=== PATIENT | female | born 1965 | race Caucasian/White ===

== ENCOUNTER 2018-02-23 16:20 | Emergency (ER) | payer BC ==
[2018-02-23 17:27] LABS: COLOR,URINE AMBER (YELLOW)
[2018-02-23 17:28] LABS: APPEARANCE,URINE CLEAR (CLEAR); OCCULT BLOOD,URINE 1+ (NEGATIVE)
[2018-02-23 17:31] LABS: BASOPHILS % 0.3 (0.0-1.5); EOSINOPHILS % 1.7 % (0.0-6.8); MEAN CORPUSCULAR HEMOGLOBIN 30.3 pg (28.0-34.0); NEUTROPHILS # 5.7 # k/uL (1.4-7.7)
--- NOTE | 2018-02-23 17:31 | ED Physician Documentation ---
Abdominal Pain - HISTORIAN Historian: patient - HPI Stated Complaint: Abdominal discomfort, N/V for a week Chief Complaint: Abdominal Pain Additonal Information: Patient presents with a 1 week history of periumblical abdominal pain with associated nausea and vomiting. Patient states she saw Dr. Chao several days ago and he recommended evaluation with labs and xrays, however, patient declined due to financial reasons. Today the pain worsened and she took 2- Hydrocodone 10/325mg before she came to the ED. She states she takes hydrocodone for her back pain. Her regimen consists of 2 Hydrocodone 10/325mg every 12 hours and Ibuprofen 600mg every 12 hours. She staggers these, however, she was told not to take her Ibuprofen anymore so she has been taking more hydrocodone. Onset: days ago (7) Duration: waxing, waning Timing: still present Context: denies: out of country travel, bad food Severity: moderate Quality: pain, aching, dull, sharp, stabbing Associated Symptoms: fever (99.6), nausea, vomiting (daily atleast 4 times per day usually after eating). denies: coffee ground emesis, bloody emesis, grossly bloody stools, chest pain Exacerbated by: food Relieved by: remaining still - ROS CONST: no problems GI/: denies: constipation CVS/RESP: denies: shortness of breath MS/SKIN/LYMPH: none - SOCIAL HX Smoking History: cigarettes, greater than 1 pack/day Alcohol Use: none Drug Use: none - FAMILY HX Family History: none - PAST HX Past History: other (idopathic hematuria) Ischemic Bowel Risk Factors: none Other History: other (chronic back pain with narcotic use) Surgeries/Procedures: none Home Medications: Ambulatory Orders Medication Instructions Recorded Clonazepam 1 mg PO PRN PRN u2 12/23/17 Levothyroxine Sodium 175 mcg PO DAILY u2 12/23/17 Topiramate 50 mg PO HS u2 12/23/17 Zolmitriptan [Zomig] 5 mg NS PRN PRN 12/23/17 Duloxetine HCl [Cymbalta] 120 mg PO D 02/23/18 Methylphenidate HCl [Ritalin] 20 mg PO D 02/23/18 Ondansetron [Zofran Odt] 4 mg PO TID #40 tab.rapdis 11/27/18 Allergies/Adverse Reactions: Allergies Allergy/AdvReac Type Severity Reaction Status Date / Time lisinopril Allergy Severe Mouth Verified 02/23/18 16:48 Swelling - VITAL SIGNS Vital Signs: Vital Signs Temp Pulse Resp BP Pulse Ox 98.4 F 68 14 149/79 96 02/23/18 16:20 02/23/18 16:20 02/23/18 16:20 02/23/18 16:20 02/23/18 16:20 - REVIEWED ASSESSMENTS Nursing Assessment Reviewed: Yes Vitals Reviewed: Yes ED Results Lab/Radiology - Lab Results Lab Results: Lab Results 02/23/18 02/23/18 02/23/18 17:25 17:25 17:05 WBC 8.40 K/ul K/ul (4.00-12.00) RBC 4.23 M/ul M/ul (3.90-5.20) Hgb 12.8 g/dL g/dL (12.0-16.0) Hct 38.1 % % (34.5-46.5) MCV 90.0 fl fl (80.0-100.0) MCH 30.3 pg pg (28.0-34.0) MCHC 33.6 g/dL g/dL (30.0-36.0) RDW 14.5 % H % (11.3-14.3) Plt Count 243 K/mm3 K/mm3 (130-400) Neut % (Auto) 67.4 % % (39.0-79.0) Lymph % (Auto) 25.6 % % (16.0-50.0) Aiken % (Auto) 5.0 % % (0.0-11.0) Eos % (Auto) 1.7 % % (0.0-6.8) Baso % (Auto) 0.3 (0.0-1.5) Neut # (Auto) 5.7 # k/uL # k/uL (1.4-7.7) Lymph # (Auto) 2.2 # k/uL # k/uL (0.6-4.0) Aiken # (Auto) 0.4 # k/uL # k/uL (0.0-0.9) Eos # (Auto) 0.1 # k/uL # k/uL (0.0-0.6) Baso # (Auto) 0.0 # k/uL # k/uL (0.0-0.5) Sodium 145 mmol/L mmol/L (136-145) Potassium 3.7 mmol/L mmol/L (3.5-5.1) Chloride 104 mmol/L mmol/L (98-107) Carbon Dioxide 32 mmol/L H mmol/L (22-30) BUN 10 mg/dL mg/dL (7-17) Creatinine 0.60 mg/dL mg/dL (0.52-1.04) Estimated Creat Clear 147 Est GFR ( Amer) > 60 (60 - ) Est GFR (Non-Af Amer) > 60 (60 - ) Glucose 101 mg/dL mg/dL (74-106) Calcium 9.2 mg/dL mg/dL (8.4-10.2) Total Bilirubin 0.9 mg/dL mg/dL (0.2-1.3) AST 491 U/L H U/L (15-46) ALT 445 U/L H U/L (13-69) Alkaline Phosphatase 245 U/L H U/L (38-126) Total Protein 6.7 g/dL g/dL (6.3-8.2) Albumin 3.5 g/dL g/dL (3.5-5.0) Urine Color Yvonne (YELLOW) Urine Appearance Clear (CLEAR) Urine pH 7.0 (5.0 - 8.0) Ur Specific [place] 1.015 (1.010-1.030) Urine Protein Negative mg/dL mg/dL (NEGATIVE) Urine Ketones Negative mg/dL mg/dL (NEGATIVE) Urine Occult Blood 1+ H (NEGATIVE) Urine Nitrite Negative (NEGATIVE) Urine Bilirubin 1+ H (NEGATIVE) Urine Urobilinogen 1.0 Eu Eu (0.2-1.0) Ur Leukocyte Esterase Negative (NEGATIVE) Urine Glucose Negative mg/dL mg/dL (NEGATIVE) - Radiology Radiology Impressions: CT abdomen and pelvis with contrast. History: periumbilical pain. Technique: Transaxial computed tomographic images of the abdomen pelvis were obtained with the use of intravenous contrast according to standard protocol. Findings: The lung bases clear. The heart size is normal. The liver , pancreas spleen adrenals and bilateral kidneys are normal. The gallbladder is partially contracted. Mild amount retained stool is present. There is no evidence of bowel obstruction. The appendix is normal. The enhanced vascular structures are normal. There is no adenopathy present. Tiny fat containing umbilical hernia is present. The bladder is normal. There is no free fluid. The uterus is absent. There is posterior fusion in the lower lumbar spine. Impression: 1. No bowel wall thickening or dilation. Normal appendix. 2. Tiny fat containing umbilical hernia. 3. Gallbladder is partially contracted. 4. Status post hysterectomy and posterior lumbar fusion. Electronically signed on Feb 23, 2018 6:58:59 PM [employer] by: Vahid Brown - Orders Orders: ED Orders Category Date Time Status Place IV Lock 1T Care 02/23/18 16:[address] ABD & PELVIS W/ CON Stat Exams 02/23/18 Completed CBC/PLATELET/DIFF Routine Lab 02/23/18 17:25 Completed CMP Routine Lab 02/23/18 17:25 Completed UA MACRO DIP ONLY Routine Lab 02/23/18 17:05 Completed Abdominal Pain Physical Exam - Physical Exam General Appearance: no acute distress, alert EENT: JULIETH NECK: normal inspection RESPIRATORY: no resp distress, chest non-tender, breath sounds normal CVS: reg rate & rhythm, heart sounds normal ABDOMEN: soft, normal bowel sounds, tenderness (periumbilical ) BACK: normal inspection, no CVA tenderness SKIN: warm/dry, normal color. No: jaundice EXTREMITIES: non-tender, normal range of motion, no edema NEURO: oriented X3, motor nml Vital Signs: Vital Signs Temp Pulse Resp BP Pulse Ox 98.4 F 68 14 149/79 96 02/23/18 16:20 02/23/18 16:20 02/23/18 16:20 02/23/18 16:20 02/23/18 16:20 Discharge Clincal Impression: Elevated LFTs Umbilical hernia without mention of obstruction or gangrene Qualifiers: Obstruction and gangrene presence: without obstruction or gangrene Qualified Code(s): K42.9 - Umbilical hernia without obstruction or gangrene Prescriptions: Ondansetron [Zofran Odt] 4 mg PO TID #40 tab.rapdis Referrals: Francisco Chao MD [Primary Care Provider] - 2 Days Additional Instructions: 1. Do NOT take more than 6 tablets of Hydrocodone daily. Do not take Tylenol or drink alcohol with pain medication 2. Follow up with PCP within 1 week. 3. Take Protonix daily x 2 months. Then re-evaluate Condition: Stable Disposition: 01 HOME, SELF-CARE Decision to Admit: NO Date of Decison to Admit: 02/23/18 Decision Time: 19:04
[2018-02-23 17:42] LABS: eGFR (Non-African) > 60
--- NOTE | 2018-02-23 19:03 | Diagnostic Imaging Report ---
IMTIAZ FELIZ [facility] [address] [facility] [address] [place], [place]. [address] Report Submission Date: Feb 23, 2018 6:58:59 PM SPINDLE SANDER Patient Study Name: CYRIL GONZALEZ Date: Feb 23, 2018 6:00:29 PM [employer]INDLE SANDER Modality Type: CT\SR Gender: F Description: CT ABD PELVIS W/ CON : 65 Institution: [facility] Physician: IMTIAZ FELIZ CT abdomen and pelvis with contrast. History: periumbilical pain. Technique: Transaxial computed tomographic images of the abdomen pelvis were obtained with the use of intravenous contrast according to standard protocol. Findings: The lung bases clear. The heart size is normal. The liver , pancreas spleen adrenals and bilateral kidneys are normal. The gallbladder is partially contracted. Mild amount retained stool is present. There is no evidence of bowel obstruction. The appendix is normal. The enhanced vascular structures are normal. There is no adenopathy present. Tiny fat containing umbilical hernia is present. The bladder is normal. There is no free fluid. The uterus is absent. There is posterior fusion in the lower lumbar spine. Impression: 1. No bowel wall thickening or dilation. Normal appendix. 2. Tiny fat containing umbilical hernia. 3. Gallbladder is partially contracted. 4. Status post hysterectomy and posterior lumbar fusion. Electronically signed on Feb 23, 2018 6:58:59 PM [employer]LE [employer]ER by: Vahid MUNOZ
[2018-02-23 20:13] VITALS: BP 138/72
== END 2018-02-23 19:40 | disposition home or self-care (01) ==
LOC: ED 16:20
DX: K42.9 Umbilical hernia without obstruction or gangrene (principal); R74.8 Abnormal levels of other serum enzymes
CPT/HCPCS: 36415; 74177; 80053; 81002; 85025; 99283; 99284; Q9967; S1016

== ENCOUNTER 2018-03-02 13:09 | Outpatient (CLI) | payer BC ==
--- NOTE | 2018-03-02 16:49 | Diagnostic Imaging Report ---
JESUS LEON [facility] [address] [facility] [address] [address] Report Submission Date: Mar 02, 2018 2:14:06 PM SKEIN WINDER Patient Study Name: CYRIL GONZALEZ Date: Mar 02, 2018 1:23:20 PM SKEIN WINDER Modality Type: US Gender: F Description: US RUQ : 65 Institution: [facility] Physician: JESUS LEON Examination: Ultrasound right upper quadrant. History: ruq pain for 3 weeks and nausea Comparison exam: CT dated [id number] Findings: Sonographic evaluation of the right upper quadrant demonstrates the gallbladder with numerous layering gallstones.. Gallbladder wall measures 1.5 mm. Common bile duct measures 8.0 mm. No intrahepatic biliary dilation. Liver demonstrates normal homogeneous echogenicity. No mass or cyst. Normal flow on color analysis. Normal portal vein Doppler waveform. Right kidney measures 12.1 cm in length. No cortical mass or cyst. No hydronephrosis. Pancreatic region without gross irregularity. Impression: Numerous layering gallstones. No gallbladder wall thickening. Dilated common bile duct at 8.0 mm. Electronically signed on Mar 02, 2018 2:14:06 PM SKEIN WINDER by: Demetrius MUNOZ
[2018-03-02 23:27] LABS: LIPASE 15 U/L (13-60); TOTAL PROTEIN 7.3 g/dL (6.0-8.5)
== END 2018-03-02 13:10 ==
LOC: RAD 13:09
PROVIDERS: ATTEND Family Medicine
DX: R94.5 Abnormal results of liver function studies (principal); R10.13 Epigastric pain
CPT/HCPCS: 36415; 76705; 80053; 83690

== ENCOUNTER 2018-05-10 12:09 | Outpatient (CLI) | payer OTHER | END 2018-05-10 12:10 | LOC: LAB 12:09 | PROVIDERS: ATTEND Family Medicine | DX: E78.5 Hyperlipidemia, unspecified (principal); R53.82 Chronic fatigue, unspecified | CPT/HCPCS: 36415; 80061; 84439; 84443; 84481 ==

== ENCOUNTER 2018-05-27 15:30 | Outpatient (CLI) | payer OTHER ==
[2018-05-27 18:59] LABS: BASOPHILS % 0.7 (0.0-1.5); EOSINOPHILS % 2.3 % (0.0-6.8); MONOCYTES % 5.1 % (0.0-11.0); NEUTROPHILS # 6.3 # k/uL (1.4-7.7)
[2018-05-27 19:18] LABS: eGFR (Non-African) > 60
== END 2018-05-27 15:32 ==
LOC: LABRHC 15:30
PROVIDERS: ATTEND Family Medicine
DX: E03.9 Hypothyroidism, unspecified (principal); I10 Essential (primary) hypertension; Z86.2 Personal history of diseases of the blood and blood-forming organs and certain disorders involving the immune mechanism
CPT/HCPCS: 36415; 80053; 84443; 85025

== ENCOUNTER 2018-08-11 16:11 | Outpatient (CLI) | payer OTHER ==
--- NOTE | 2018-08-13 17:08 | CONSULTATION REPORT ---
CHIEF COMPLAINT: Low back and leg pain. HISTORY OF PRESENT ILLNESS: Patient is a 53-year-old female who presents to the [facility] pain clinic for evaluation of chronic low back and leg pain. She has a complicated pain history that began in 1998 when she injured her back while moving some heavy furniture. She was treated with several lumbar epidural steroid injections that were performed without fluoroscopy back in 1998 and she denies any pain relief from those injections. She eventually had a L4, L5, S1 discectomy laminectomy lumbar spine surgery in 1998 and she reports very good pain relief for about 6 years after that surgery. However, she states that she reinjured her back in 2004 while lifting some heavy objects. She was treated with multiple interventional procedures between 8258-0042 and she estimated having at least 10 injections. She says that some of those injections provided temporary relief, but others did not. Most of those injections were performed at [facility] in [place]. She does not have medical records or more details of any of those procedures. She eventually had a second spine surgery which was a posterior fusion that was performed in [place] in 2011. She reports good pain relief for about a year after that surgery, however pain returned and between 2011 to 2018 she estimates having had another 4-5 lumbar spine injections. She said one of those injections did give some pain relief, but the others did not give any pain relief. Then in 2016 she had a stem cell injection into the discs of her low back, and she says the procedure was called AmnioFix. She states she did not have any pain relief initially from that procedure but about 2 months after the procedure she did notice good pain relief for about 4 months. However, pain eventually returned back to baseline. She has had physical therapy several times in the past, most recently in June 2018. She does report some relief of her leg pain but not much relief of her back pain. She denies any chiropractic therapy. She has had recent x-ray and MRI imaging. Unfortunately, I do not have any medical records to review for those imaging studies and she did not bring any records with her to this visit. She also states that she recently had a nerve conduction study and EMG performed but she also does not have any medical records for my review. Pain is described as chronic, severe, stabbing, burning, shooting, aching and throbbing in character rated 6/10 in intensity. Pain is located throughout the low back, worse on the left side with radiation to the left lower extremity primarily. The pain radiates from the left low back into the posterior thigh, calf and into the heel. She also reports occasional pain radiation into the right lower extremity to the knee. Pain is worse with standing, walking, or any prolonged activities. Pain improves with lying on her side and pain medications which she gets from her primary care physician, Dr. Chao. Patient denies any weakness in her lower extremity. She denies saddle anesthesia, bowel or bladder incontinence. PAST SURGICAL HISTORY: Lumbar discectomy laminectomy at L4-5, L5-S1 in 1998. Posterior lumbar fusion in 2011. PAIN TREATMENT HISTORY: 2 lumbar epidurals without fluoroscopy in 1998, no relief. Approximately 10 lumbar injections between 1609-1962 in [place]. Some variable relief. 4 lumbar spine injections between 7548-5582. Relief from 1 injection, no relief from the others. AmnioFix stem cell injection into discs in 2016. Good relief for 4 months. Physical therapy in June 2018. Some relief of leg pain. No chiropractic therapy. PAIN MEDICATION HISTORY: Oxycodone 10 mg q6 p.r.n., meloxicam 7.5 mg b.i.d., topiramate 100 mg daily, clonazepam 1 mg b.i.d., duloxetine 60 mg daily. PMH/PFH/PSH: Past medical, family, and social history are shown in detail in the medical records and were reviewed in detail today and manjarrez details are described in HPI. REVIEW OF SYSTEMS: A 14-point review of systems was performed and is positive for back pain and leg pain as described in HPI. All other systems are negative. PHYSICAL EXAM: Vitals: Blood pressure 147/85, pulse 71, respirations 18. Temperature 97.2 degrees Fahrenheit. O2 saturation is 94% on room air. General: Patient is alert and oriented x4 in no acute distress. Positive for obesity. Patient ambulated into clinic without assistive device. Gait is nonantalgic. HEENT: Pupils are equal and reactive to light and accommodation. Extraocular muscles intact. Cardiovascular: Regular rate and rhythm. No murmurs, rubs or gallops. Pulmonary: Lungs are clear to auscultation bilaterally. Abdomen: Soft, nontender, nondistended. No hepatosplenomegaly. : Deferred. Skin: No rashes or lesions. Musculoskeletal: Low back: Lumbar spine range of motion is significantly decreased in flexion and extension with pain throughout range of motion. Tenderness to palpation at lumbar spinous processes and bilateral lumbar paraspinal muscles and bilateral sacral sulci. Worse on the left. Positive UMANG. Positive FAIR. Positive Stinchfield bilaterally. Straight leg raise is positive on the left lower extremity. Hips: Bilateral hips range of motion is full in flexion, extension, external rotation, internal rotation. Negative UMANG, FAIR and Stinchfield for groin pain. Positive tenderness to palpation at the left greater trochanter bursa. Neurologic: Cranial nerves II-XII are grossly intact. Deep tendon reflexes are 2/4 for bilateral patellar tendons and the left Achilles tendon. Deep tendon reflexes are absent at the right Achilles tendon. Manual muscle testing shows decreased strengths in the right lower extremity with 4/5 dorsiflexion, otherwise 5/5 for hip flexion, hip abduction, knee flexion, knee extension, EHL extension and plantar flexion. Manual muscle testing shows strengths of 5/5 in the left lower extremity for hip flexion, hip abduction, knee flexion, knee extension, dorsiflexion, EHL extension and plantar flexion. Sensation to light touch is intact in bilateral lower extremities in all dermatomes symmetrically. Straight leg raise is positive in the left lower extremity, negative on the right. Plantar reflexes are down-going bilaterally. No clonus or fasciculations observed. RADIOLOGY: Patient reports having recent x-rays, MRI as well as nerve conduction and EMG studies. However, no medical records are available for review at this time. ASSESSMENT: 1. Chronic low back pain. 2. Acute on chronic left lumbar radiculopathy. 3. Chronic right L4 through S1 radiculopathies. 4. Status post lumbar laminectomies and posterior fusion surgeries i.e. 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 5. Lumbar facet arthropathy. 6. Probable lumbar degenerative disc disease. 7. Probable lumbar spinal stenosis and neural foraminal stenosis. 8. Obesity. PLAN: 1. I advised patient that in order to develop an interventional treatment plan I would need to see the x-rays, MRI images and radiology reports and also review the results of the nerve conduction study and EMG. I offered to schedule the patient for return visit in 2 weeks at [facility]. However, patient states that she is willing to drive to [place] to see me in clinic at [facility] if that would speed up the process, so I agreed to refer her for an appointment in the next week to see me in [place]. Patient is instructed to bring the CD with images of her x-rays and MRI for my review and also to bring any radiology reports she has. Otherwise we can obtain those via Fax. I also instructed her to bring the results of her nerve conduction and EMG studies. After I review all of the studies mentioned above, I can propose an interventional treatment plan for this patient. Based on my initial evaluation I will potentially consider lumbar epidural steroid injections as a first treatment step. 2. Continue physical therapy and home exercise program. 3. Continue pain medication management via primary care provider. I am available for consultation on pain medication management; however, I am not able to prescribe pain medications out of the [facility] clinic due to my infrequent time there and it is just not practical for me to do pain medication management out of [place]. NOTE: I spent greater than 45 minutes with this patient of which greater than 50% was spent in counseling and coordination of care for patients chronic back pain and lumbar radicular pain and post laminectomy pain syndrome. ([id number]) Demetrius Archibald M.D. (Dictated/Not Signed) Berenice Job#: [id number] cc: Francisco Chao M.D. TAMMY
== END 2018-08-11 16:13 ==
LOC: OUT 16:11
PROVIDERS: ATTEND Physical Medicine & Rehabilitation
DX: M54.16 Radiculopathy, lumbar region (principal); M54.17 Radiculopathy, lumbosacral region; M96.1 Postlaminectomy syndrome, not elsewhere classified; M12.88 Other specific arthropathies, not elsewhere classified, other specified site; E66.9 Obesity, unspecified; Z98.1 Arthrodesis status
CPT/HCPCS: 99214

== ENCOUNTER 2018-12-21 13:29 | Outpatient (CLI) | payer OTHER ==
[~2018-12-21 13:29] MED LIST: 0.9 % SODIUM CHLORIDE PF 10 ML VIAL IJ ONE; IOHEXOL 240 MG/ML BOTTLE 50 ML ONE; Lidocaine 1% 5ml 10 MG/ML VIAL ONE; methylPREDNISolone ACETATE 80 MG/ML VIAL IM ONE
== END 2018-12-21 15:43 | disposition home or self-care (01) ==
LOC: OUT 13:29
PROVIDERS: ATTEND Physical Medicine & Rehabilitation
DX: M48.061 Spinal stenosis, lumbar region without neurogenic claudication (principal); M54.16 Radiculopathy, lumbar region; M54.5 Low back pain
CPT/HCPCS: 62323; J1040

== ENCOUNTER 2018-12-22 22:05 | Emergency (ER) | payer SELFPAY ==
[~2018-12-22 22:05] MED LIST changes: -0.9 % SODIUM CHLORIDE PF 10 ML VIAL IJ ONE; -IOHEXOL 240 MG/ML BOTTLE 50 ML ONE; +KETOROLAC TROMETHAMINE 60 MG/2 ML VIAL IM ONE; -Lidocaine 1% 5ml 10 MG/ML VIAL ONE; -methylPREDNISolone ACETATE 80 MG/ML VIAL IM ONE
[2018-12-22] MEDS ORDERED: KETOROLAC TROMETHAMINE 60 MG/2 ML VIAL IM ONE (22:14)
--- NOTE | 2018-12-22 22:22 | ED Physician Documentation ---
Low Back Pain - HISTORIAN Historian: patient - HPI Chief Complaint: Low Back Pain/ Injury Further Comments: yes (53 year old female patient presents with complaint of 8/10 back pain. Patient had epidural injection by Dr Archibald yesterday. Is currently out of her oxycodone and unable to fill her prescription due to over useage. She is requesting a toradol injection. Patient reports she smoked CBD tonight for her pain with no relief. Denies muscle spasms, denies loss of bowel or bladder. Report pain radiating down both legs "like always".) - ROS CONST: denies: no problems CVS/RESP: none EYES/ENT: none MS/SKIN/LYMPH: none Neuro/Psych: none GI/: denies: abdominal pain - PAST HX Past History: back injury, back pain Other History: other (hypothyroidism, HTN, depression, GERD, chronic back pain) Surgeries/Procedures: other (multiple back surgeries; multiple injections) Allergies/Adverse Reactions: Allergies Allergy/AdvReac Type Severity Reaction Status Date / Time lisinopril Allergy Severe Mouth Verified 12/22/18 22:40 Swelling losartan AdvReac Localized Verified 12/22/18 22:40 Swelling Home Medications: Ambulatory Orders Medication Instructions Recorded Zolmitriptan [Zomig] 5 mg NS PRN PRN 12/23/17 Ondansetron [Zofran Odt] 4 mg PO TID #40 tab.rapdis 02/23/18 - SOCIAL HX Smoking History: quit greater than 1 year - FAMILY HX Family History: denies: none - VITAL SIGNS Vital Signs: Vital Signs Temp Pulse Resp BP Pulse Ox 98.4 F 71 18 141/79 99 12/22/18 22:10 12/22/18 22:10 12/22/18 22:10 12/22/18 22:10 12/22/18 22:10 - REVIEWED ASSESSMENTS Nursing Assessment Reviewed: Yes Vitals Reviewed: Yes Progress - Progress Progress: Medicated with toradol in ER; reports pain down to 5-6/10 Patient is on a daily meloxicam. Instructed to follow up with Dr Chao if pain does not improve in next 24 hours. ED Results Lab/Radiology - Orders Orders: ED Orders Category Date Time Status Ketorolac Tromethamine [Toradol] Med 12/22/18 22:14 Discontinued 60 mg IM .STK-MED ONE Ketorolac Tromethamine [Toradol] Med 12/22/18 22:05 Discontinued 60 mg IM NOW ONE Low Back Pain/Injury - Physical Exam General Appearance: mild distress EENT: eye inspection normal, JULIETH Resp/CVS: no resp. distress, reg. rate & rhythm Back: other (epidural injection site bandage removed; c/o lumbar tenderness at L5 - S1). No: vertebral point-tendernes, CVA tenderness, muscle spasm Neuro/Psych: oriented x3 Skin: normal color, warm/dry, NR, INT, PAL, DR Extremities: non-tender, normal range of motion, no evidence of injury, no edema, J, OTR [employer] Discharge Clincal Impression: Low back pain Qualifiers: Chronicity: acute Back pain laterality: bilateral Sciatica presence: with sciatica Sciatica laterality: bilateral sciatica Qualified Code(s): M54.42 - Lumbago with sciatica, left side; M54.41 - Lumbago with sciatica, right side Referrals: Francisco Chao MD [Primary Care Provider] - 2 Days Condition: Stable Disposition: 01 HOME, SELF-CARE Decision to Admit: NO Decision Time: 22:21
[2018-12-22 22:29] VITALS: BP 141/79
== END 2018-12-22 22:49 | disposition home or self-care (01) ==
LOC: ED 22:05 → SUPCPDRO 22:05 → ED 22:49
DX: M54.41 Lumbago with sciatica, right side (principal); M54.42 Lumbago with sciatica, left side
CPT/HCPCS: 96372; 99284; J1885